=== PATIENT | female | born 1960 | race American Indian/Alaskan Native ===

== ENCOUNTER 2018-08-28 13:32 | Emergency (ER) | payer MEDICAID ==
[2018-08-28 13:41] VITALS: BP 137/90
--- NOTE | 2018-08-28 13:43 | Emergency Department Report ---
Chief Complaint: Extremity Injury, Lower Stated Complaint: RT ANKLE SWOLLEN/PAIN Time Seen by Provider: 08/28/18 13:40 - HPI History of Present Illness: This is a 58 y.o. F. that presents to ER with right ankle pain and swelling 4 days. Patient states she fractured ankle 12 years ago. - Exam Vital Signs: Vital Signs 08/28/18 13:40 Temperature 98.6 F Pulse Rate 82 Respiratory 16 Rate Blood Pressure 137/90 O2 Sat by Pulse 99 Oximetry MSE screening note: Focused history and physical exam performed. Due to findings the following was ordered: This initial assessment/diagnostic orders/clinical plan/treatment(s) is/are subject to change based on patient's health status, clinical progression and re- assessment by fellow clinical providers in the ED. Further treatment and workup at subsequent clinical providers discretion. Patient/guardians urged not to elope from the ED as their condition may be serious if not clinically assessed and managed. Initial orders include: XR right ankle. ED Disposition for MSE Condition: Stable
--- NOTE | 2018-08-28 14:06 | XRay Report ---
RIGHT ANKLE, 3 views: History: right ankle pain and swelling. No comparison. Moderate to severe lateral soft tissue swelling is identified. There has been previous internal fixation of a distal right fibular fracture with metal plate and screws. No acute fracture is identified. The ankle mortise is within normal limits. IMPRESSION: Soft tissue swelling. Previous internal fixation of a distal fibular fracture. No acute osseous findings are identified.
[2018-08-28] MEDS ORDERED: TORADOL IM ONE (14:33)
--- NOTE | 2018-08-28 15:16 | Emergency Department Report ---
HPI - General Chief Complaint: Extremity Injury, Lower Time Seen by Provider: 08/28/18 13:40 - HPI HPI: 58-year-old female with a history of ankle surgery 15 years ago presents to the bee sting was days ago she started x-rays a right ankle pain making it difficult for her to walk. Patient states the pain is aggravated with standing, prolonged walking. She denies any traumatic injuries. She denies chest pain, shortness of breath, swelling to the feet ED Past Medical Hx - Past Medical History Hx Hypertension: Yes Hx CVA: Yes Additional medical history: glaucoma - Surgical History Additional Surgical History: rt ankle, C/S, eyes - Social History Smoking Status: Current Every Day Smoker Substance Use Type: None - Medications Home Medications: Home Medications Medication Instructions Recorded Confirmed Last Taken Type Cyclobenzaprine [Flexeril] 10 mg PO QHS PRN #20 tablet 08/28/18 Unknown Rx Naproxen [Naprosyn] 500 mg PO BID #30 tablet 08/28/18 Unknown Rx ED Review of Systems ROS: Stated complaint: RT ANKLE SWOLLEN/PAIN Other details as noted in HPI Comment: All other systems reviewed and negative Physical Exam - Physical Exam Vital Signs: Vital Signs 08/28/18 13:40 Temperature 98.6 F Pulse Rate 82 Respiratory 16 Rate Blood Pressure 137/90 O2 Sat by Pulse 99 Oximetry Physical Exam: GENERAL: Alert and oriented x3, no apparent distress, Normal Gait, atraumatic. HEAD: Head is normocephalic and a-traumatic. EXTREMITIES/MUSCULOSKELETAL: No cyanosis, clubbing, rash, lesions or edema. Full ROM bilaterally. Pedal Pulses 2+ bilaterally. LE 5+ strength bilaterally, without tenderness to palpation of the right ankle, no deformity seen NEUROLOGIC: The patient is cooperative with no focal neurologic deficits. SKIN: Warm and dry, No lesions, No ulceration or induration present. ED Course Vital Signs 08/28/18 13:40 Temperature 98.6 F Pulse Rate 82 Respiratory 16 Rate Blood Pressure 137/90 O2 Sat by Pulse 99 Oximetry ED Medical Decision Making - Radiology Data Radiology results: report reviewed, image reviewed Fluoro Time In Minutes: RIGHT ANKLE, 3 views: History: right ankle pain and swelling. No comparison. Moderate to severe lateral soft tissue swelling is identified. There has been previous internal fixation of a distal right fibular fracture with metal plate and screws. No acute fracture is identified. The ankle mortise is within normal limits. IMPRESSION: Soft tissue swelling. Previous internal fixation of a distal fibular fracture. No acute osseous findings are identified. Transcribed By: TTR Dictated By: TERESA AKERS JR, MD Electronically Authenticated By: TERESA AKERS JR, MD Signed Date/Time: 08/28/18 1402 - Medical Decision Making 58-year-old female presents with right ankle pain. X-ray shows no acute fracture or dislocation. X-ray shows a loose screw in the patient's bone. Discussed this findings with the patient. Discussed with patient pain may be coming from the unscrewed metal in her ankle Discussed follow-up with orthopedic. Right ankle Lisandro wrapped and patient placed in crutches with discharge retractions. Critical care attestation.: If time is entered above; I have spent that time in minutes in the direct care of this critically ill patient, excluding procedure time. ED Disposition Clinical Impression: Ankle pain, right Disposition: DC-01 TO HOME OR SELFCARE Is pt being admited?: No Does the pt Need Aspirin: No Condition: Stable Instructions: Arthralgia (ED) Additional Instructions: Make sure to follow up with the primary care physician as discussed. Take all your medications as you've been prescribed. If you have any worsening symptoms or develop new symptoms please return to ED immediately. Prescriptions: Cyclobenzaprine [Flexeril] 10 mg PO QHS PRN #20 tablet PRN Reason: Muscle Spasm Naproxen [Naprosyn] 500 mg PO BID #30 tablet Referrals: [facility] MD DOLLY [Primary Care Provider] - 3-5 Days KYLER TORIBIO MD [Staff Physician] - 3-5 Days [facility] [Provider Group] - 3-5 Days Forms: Work/School Release Form(ED) Time of Disposition: 16:03
[2018-09-20] MEDS ORDERED: DIPRIVAN 10 MG/ML IV ONE (08:57)
[2018-09-20] MEDS ORDERED: VANCOMYCIN/NS 1 GM/250 ML 1 GM/250 ML BAG IV ONE (09:00)
== END 2018-08-28 16:49 | disposition home or self-care (01) ==
LOC: ED 13:32
DX: M25.571 Pain in right ankle and joints of right foot (principal); I10 Essential (primary) hypertension; F17.200 Nicotine dependence, unspecified, uncomplicated; Z86.73 Personal history of transient ischemic attack (TIA), and cerebral infarction without residual deficits; Z88.6 Allergy status to analgesic agent; Z88.0 Allergy status to penicillin
CPT/HCPCS: 73610; 96372; 99283; J1885

== ENCOUNTER 2018-09-20 06:02 | Day surgery (SDC) | payer MEDICAID ==
--- NOTE | 2018-09-20 07:00 | Anesthesia Day of Surgery ---
Anesthesia Day of Surgery - Day of Surgery Patient Examined: Yes Patient H&P Reviewed: Yes Patient is NPO: Yes Beta Blockers: Yes
--- NOTE | 2018-09-20 07:03 | Anesthesia Consultation ---
Anesthesia Consult and Med Hx Date of service: 09/20/18 - Airway Anesthetic Teeth Evaluation: Good ROM Head & Neck: Adequate Mental/Hyoid Distance: Adequate Mallampati Class: Class II Intubation Access Assessment: Good - Pre-Operative Health Status ASA Pre-Surgery Classification: ASA3 Proposed Anesthetic Plan: General, MAC - Pulmonary Hx Smoking: Yes (1/2 PPD) Hx Sleep Apnea: Yes (DX SLEEP APNEA , NO CPAP USE.) - Cardiovascular System Hx Hypertension: Yes (X 10 YRS) Hx Heart Murmur: Yes ( CHILD) - Central Nervous System CVA: Yes (2009-MILD LEFT SIDED WEAKNESS; HTN) Hx Back Pain: Yes - Other Systems Hx Cancer: No
[2018-09-20] MEDS ORDERED: SUBLIMAZE IV PRN (07:06)
[2018-09-20] MEDS ORDERED: ZOFRAN IV PRN (07:06)
[2018-09-20] MEDS ORDERED: SUBLIMAZE IV NR (07:54)
[2018-09-20] MEDS ORDERED: LACTATED RINGERS 1,000 ML IV SCH (08:00)
[2018-09-20] MEDS ORDERED: MARCAINE-EPI/PF 0.5%-1:200,000 INFILTRATI ONE (08:00)
[2018-09-20] MEDS ORDERED: VERSED IV NR (08:00)
[2018-09-20] MEDS ORDERED: NACL 0.9% 500 ML 0 ML ONE (08:09)
[2018-09-20] MEDS ORDERED: NEOSPORIN GU IR ONE (08:10)
[2018-09-20] MEDS ORDERED: NACL 0.9% IR ONE (08:25)
[2018-09-20] MEDS ORDERED: .VANCOMYCIN VIAL ONE (08:30)
[2018-09-20] MEDS ORDERED: VERSED ONE ×2 (08:35→08:45)
--- NOTE | 2018-09-20 09:51 | Procedure Note ---
Date of procedure: 09/20/18 Pre-op diagnosis: hardware irritation right ankle Post-op diagnosis: same Procedure: Removal of hardware right ankle Procedure Patient was brought to the OR after being given a popliteal nerve block in preoperative holding she was placed onto the or table in a supine position the right lower extremity was prepped and draped in the usual sterile manner. A tunnel procedure was done to identify the patient and the correct operative site. The leg was exsanguinated followed by inflation of the pneumatic tourniquet to 300 mmHg. Utilizing the previous lateral incision this was carried down sharply through skin and subcutaneous down directly onto the plate using a combination of knife blade and periosteal elevator the soft tissue and scar tissue was removed from the plate as well as the screw roots Using a prescription screwdriver of the screws 6 screws were removed from the metal plate the plate was then extracted using periosteal school osteotome The interfragmentary screw located in the anterolateral portion of the distal fibula was identified and was also removed The wound was copiously irrigated with saline and closure was done in a routine fashion. Dressings were applied she tolerated the procedure underwent no complications. She was sent to postanesthesia recovery in stable condition Anesthesia: regional Surgeon: KYLER TORIBIO Client Delivery Manager: MEGAN ROSAS Estimated blood loss: minimal Pathology: none Condition: stable Disposition: PACU
[2018-09-20 11:27] VITALS: BP 146/86
== END 2018-09-20 06:03 | disposition home or self-care (01) ==
LOC: OR 06:02
PROVIDERS: ATTEND Orthopaedic Surgery
DX: Z47.2 Encounter for removal of internal fixation device (principal); H40.9 Unspecified glaucoma; G43.909 Migraine, unspecified, not intractable, without status migrainosus; E78.00 Pure hypercholesterolemia, unspecified; G47.30 Sleep apnea, unspecified; I10 Essential (primary) hypertension; F17.210 Nicotine dependence, cigarettes, uncomplicated; Z98.890 Other specified postprocedural states; Z79.899 Other long term (current) drug therapy; Z88.0 Allergy status to penicillin; Z79.82 Long term (current) use of aspirin; Z88.8 Allergy status to other drugs, medicaments and biological substances; Z98.49 Cataract extraction status, unspecified eye; Z86.73 Personal history of transient ischemic attack (TIA), and cerebral infarction without residual deficits; Z86.2 Personal history of diseases of the blood and blood-forming organs and certain disorders involving the immune mechanism
CPT/HCPCS: 20680; 73610; 82803; 99283; J2250; J2704; J3010; J3370; J7120; 64450; J7040